=== PATIENT | male | born 1965 | race Caucasian/White ===

== ENCOUNTER 2023-08-27 06:44 | Day surgery (SDC) | payer BC ==
[2023-08-26 14:01] VITALS: BMI 26.2
[2023-08-27] MEDS ORDERED: Lidocaine 2% PF 5 ML VIAL ONE (09:05)
[2023-08-27] MEDS ORDERED: EPINEPHrine 1 MG/ML VIAL ONE (09:05)
[2023-08-27] MEDS ORDERED: Bupivacaine PF 0.5% 30 ML VIAL ONE (09:06)
[2023-08-27] MEDS ORDERED: CEFAZOLIN 2 GM VIAL ONE (09:38)
[2023-08-27] MEDS ORDERED: Sodium Chloride 0.9% 100 ML ONE (09:38)
[2023-08-27] MEDS ORDERED: Midazolam HCl 2 mg/2 ml Vial ONE ×2 (09:45→09:49)
[2023-08-27] MEDS ORDERED: fentaNYL PF 100 MCG/2 ML SYRINGE ONE (09:45)
[2023-08-27] MEDS ORDERED: Ondansetron PF 4 MG/2 ML Vial ONE (09:53)
[2023-08-27] MEDS ORDERED: diphenhydrAMINE 50 MG/ML VIAL ONE (09:53)
[2023-08-27] MEDS ORDERED: fentaNYL 50 mcg/mL 1 mL Vial ONE (09:57)
== END 2023-08-27 11:00 | disposition home or self-care (01) ==
LOC: SDC 06:44
PROVIDERS: ATTEND Specialist
PROC: 0JH60WZ Insertion of Totally Implantable Vascular Access Device into Chest Subcutaneous Tissue and Fascia, Open Approach (ICD-10-PCS; principal; 2023-08-27)
DX: C18.9 Malignant neoplasm of colon, unspecified (principal); Z90.49 Acquired absence of other specified parts of digestive tract; Z88.2 Allergy status to sulfonamides
CPT/HCPCS: 71045; C1788; J0171; J0665; J1200; J1642; J2001; J2250; J2405; J3010; J3490

== ENCOUNTER 2023-10-23 07:54 | Outpatient (CLI) | payer BC ==
[2023-10-23] MEDS ORDERED: Iopamidol 370 76% 100 ML VIAL ONE (15:43)
== END 2023-10-23 07:55 | disposition home or self-care (01) ==
LOC: CT 07:54
PROVIDERS: ATTEND Internal Medicine Hematology & Oncology
DX: C18.0 Malignant neoplasm of cecum (principal); C18.7 Malignant neoplasm of sigmoid colon; K76.9 Liver disease, unspecified; Z90.49 Acquired absence of other specified parts of digestive tract
CPT/HCPCS: 36415; 71260; 74177; 80053; 82378; Q9967

== ENCOUNTER 2024-02-12 07:54 | Outpatient (CLI) | payer BC ==
[2024-02-12] MEDS ORDERED: Iopamidol 370 76% 100 ML VIAL ONE (14:45)
== END 2024-02-12 07:55 | disposition home or self-care (01) ==
LOC: CT 07:54
PROVIDERS: ATTEND Internal Medicine Hematology & Oncology
DX: C18.7 Malignant neoplasm of sigmoid colon (principal); C18.0 Malignant neoplasm of cecum
CPT/HCPCS: 71260; 74177; Q9967

== ENCOUNTER 2024-02-26 08:45 | Outpatient (CLI) | payer BC | END 2024-02-26 08:46 | LOC: PET 08:45 | PROVIDERS: ATTEND Internal Medicine Hematology & Oncology | DX: C18.7 Malignant neoplasm of sigmoid colon (principal); C18.0 Malignant neoplasm of cecum; D50.0 Iron deficiency anemia secondary to blood loss (chronic) | CPT/HCPCS: 78815; A9552 ==

== ENCOUNTER 2024-04-18 11:44 | Day surgery (SDC) | payer BC ==
[2024-04-15 10:50] VITALS: BMI 29.2
[~2024-04-18 11:44] MED LIST: Magnevist 469MG/ML 20 ML VIAL ONE
[2024-04-18] MEDS ORDERED: Ondansetron PF 4 MG/2 ML Vial ONE (15:40)
[2024-04-18] MEDS ORDERED: Dexamethasone 20 MG/5 ML VIAL ONE (15:40)
[2024-04-18] MEDS ORDERED: Lidocaine 1% PF 5 ML VIAL ONE (15:40)
[2024-04-18] MEDS ORDERED: Rocuronium Bromide 10 MG/ML (10ML VIAL) ONE (15:40)
[2024-04-18] MEDS ORDERED: PROPOFOL 200 MG/20 ML VIAL ONE (15:40)
[2024-04-18] MEDS ORDERED: SUGAMMADEX SODIUM 200 MG/2 ML VIAL ONE (16:14)
== END 2024-04-18 17:29 | disposition home or self-care (01) ==
LOC: MRI 11:44
PROVIDERS: ATTEND Internal Medicine Hematology & Oncology
DX: C18.7 Malignant neoplasm of sigmoid colon (principal); C18.0 Malignant neoplasm of cecum; D50.0 Iron deficiency anemia secondary to blood loss (chronic); Z90.49 Acquired absence of other specified parts of digestive tract; Z88.0 Allergy status to penicillin; Z79.899 Other long term (current) drug therapy
CPT/HCPCS: 74183; J1100; J2405; J2704

== ENCOUNTER 2024-12-08 12:22 | Outpatient (CLI) | payer BC ==
[2024-12-08] MEDS ORDERED: Iopamidol 370 76% 100 ML VIAL ONE (12:55)
[2024-12-08 13:04] LABS: Estimated GFR - POC 101.0
== END 2024-12-08 12:23 | disposition home or self-care (01) ==
LOC: CT 12:22
PROVIDERS: ATTEND Internal Medicine Hematology & Oncology
DX: C18.7 Malignant neoplasm of sigmoid colon (principal); C18.0 Malignant neoplasm of cecum; D50.0 Iron deficiency anemia secondary to blood loss (chronic); K76.9 Liver disease, unspecified; K57.30 Diverticulosis of large intestine without perforation or abscess without bleeding; Z90.49 Acquired absence of other specified parts of digestive tract
CPT/HCPCS: 36415; 71260; 74177; 82565; Q9967

== ENCOUNTER 2025-03-17 08:25 | Outpatient (CLI) | payer BC ==
[2025-03-17 09:43] LABS: Estimated GFR - POC 97.0
== END 2025-03-17 08:26 | disposition home or self-care (01) ==
LOC: CT 08:25
PROVIDERS: ATTEND Internal Medicine Hematology & Oncology
DX: C18.0 Malignant neoplasm of cecum (principal); C18.7 Malignant neoplasm of sigmoid colon; D50.0 Iron deficiency anemia secondary to blood loss (chronic); K76.89 Other specified diseases of liver
CPT/HCPCS: 36415; 71260; 74177; 82565